=== PATIENT | female | born 1935 | race Caucasian/White ===

== ENCOUNTER → 2024-07-12 12:38 | Outpatient (REF) | payer OTHER, SELFPAY | LOC: HWRAD 12:38 | PROVIDERS: ATTENDING PHYSICIAN Obstetrics & Gynecology; FAMILY PHYSICIAN Internal Medicine | DX: N81.2 Incomplete uterovaginal prolapse (principal) | CPT/HCPCS: 76830; 76856 ==

== ENCOUNTER 2024-08-13 06:22 | Day surgery (SDC) | payer OTHER, SELFPAY ==
[2024-08-07 11:34] LABS: Hematocrit 39.9 % (37.0-47.0); Hemoglobin 13.4 g/dL (12.0-16.0); Mean Corp Hgb Conc. 33.6 g/dL (33.0-37.0); Mean Corpuscular Hgb 30.9 pg (27.0-31.0); Mean Corpuscular Volume 92.1 fL (81.0-99.0); Mean Platelet Volume 9.7 fL (7.4-10.4); Platelet Count 216 10^3/uL (130-400); Red Blood Cell Count 4.33 10^6/uL (4.20-5.40); Red Cell Dist. Width 13.5 % (11.5-14.5); White Blood Cell Count 6.6 10^3/uL (4.8-10.8)
[2024-08-07 13:14] LABS: Blood Urea Nitrogen 18 mg/dl (7-17); Calcium 9.2 mg/dl (8.4-10.2); Carbon Dioxide 28 mmol/L (22-30); Chloride 106 mmol/L (98-107); Glucose 92 mg/dl (70-99); Potassium 4.4 mmol/L (3.5-5.1); Sodium 142 mmol/L (135-145); eGFR > 60.00
[2024-08-07 13:43] VITALS: BMI 27.7
[2024-08-13] VITALS (10 sets, daily range): BP systolic 127–146; BP diastolic 67–79; BMI 27.7
[2024-08-13] MEDS: Pyridium 200 MG PO (08:51)
[2024-08-13] MEDS: NORMOSOL-R/PLASMALYTE-A 1000 IV (08:51)
[2024-08-13] MEDS: TYLENOL 650 MG PO (13:16)
== END 2024-08-13 17:55 | disposition home or self-care (01) ==
LOC: SDS 06:22
PROVIDERS: ATTENDING PHYSICIAN Obstetrics & Gynecology; FAMILY PHYSICIAN Internal Medicine
DX: N81.2 Incomplete uterovaginal prolapse (principal); N39.3 Stress incontinence (female) (male); N36.41 Hypermobility of urethra
CPT/HCPCS: 57288; 57120; 57250; 36415; 80048; 85027; 86850; 86900; 86901; 93005; C1713; C1771